=== PATIENT | female | born 1955 | race Caucasian/White ===

== ENCOUNTER → 2020-02-17 | Outpatient (CLI) | payer MEDICARE, OTHER ==
[~2020-02-17] MED LIST: AMITRIPTYLINE H10 MG PO; AUBAGIO14 MG PO; BACLOFEN10 MG PO; IOPAMIDOL 370 MG/ML 200 ML INFUS..BTL INJ ONE; LEVOTHYROXINE50 MCG PO; PAMELOR10 MG PO; PROAIR HFA INH8.5 GM INH; PROTONIX20 MG PO; SODIUM CHLORIDE 0.9% 50ML 50 ML ONE; SYMBICORT 16010.2 GM INH
[2020-02-17 14:27] LABS: BLOOD UREA NITROGEN 12 mg/dL (7-26); BUN/CREATININE RATIO 17 (6-25); CREATININE, SERUM 0.71 mg/dL (0.57-1.11); EST GLOMERULAR FILTRATION RATE > 60 ML/MIN (60-)
--- NOTE | 2020-02-18 09:28 | Diagnostic Imaging Report ---
CT of the abdomen and pelvis with contrast TECHNIQUE: CT of the abdomen and pelvis WITHOUT and WITH intravenous contrast and WITHOUT oral contrast. Dose modulation, iterative reconstruction, and/or weight-based adjustment of the mA/kV was utilized to reduce the radiation dose to as low as reasonably achievable. Renal protocol was utilized including noncontrast imaging, arterial phase imaging, venous phase imaging and delayed imaging. Delayed imaging was extended to include the pelvis. IV CONTRAST: 100 mL of Isovue 370 ORAL CONTRAST: Water RADIATION DOSE: Total DLP: 1969 mGy*cm COMPLICATIONS: None INDICATION: ^[id number] ^[id number] ^CYST OF KIDNEY. COMPARISON: None. FINDINGS: LOWER THORAX: Unremarkable. HEPATOBILIARY: Gallbladder is surgically absent. The entire liver is visualized on noncontrast and delayed phase imaging without suspicious mass or biliary dilatation. Visualized portions of arterial and venous phase imaging are unremarkable. Portal vein is patent. SPLEEN: Mild splenomegaly. PANCREAS: No focal masses or ductal dilatation. ADRENALS: No adrenal nodules. KIDNEYS/URETERS: Negative for renal calculus or hydronephrosis. Negative for perinephric stranding or fluid collection. There is a large right multilobular parapelvic cyst extending superiorly to the level of the gallbladder fossa. No suspicious enhancement is identified on any phase of imaging. No wall thickening or calcification is identified. Exact measurement is difficult however it measures approximately 10.8 cm in the caudal length. It measures up to 8.2 cm in transverse diameter and 5.6 cm in AP diameter. Left inferior pole cortical cyst is identified measuring up to 3.7 cm without suspicious features. Delayed phase imaging demonstrates symmetric excretion of contrast into bilateral nondilated ureters. Negative for intraluminal filling defect. Ureters are well-visualized the level of the bladder without dilatation. PELVIC ORGANS: Urinary bladder is partially distended and unremarkable. No surrounding inflammatory changes or wall thickening. Uterus and ovaries are surgically absent. PERITONEUM/RETROPERITONEUM: No free air or fluid. LYMPH NODES: No lymphadenopathy. VESSELS: Celiac and superior mesenteric arteries are patent and unremarkable. Single right, dominant left and accessory inferior left renal arteries are noted. Negative for abdominal aortic aneurysm. Nonspecific right lower quadrant mesenteric venous varices are noted. GI TRACT: Limited due to lack of oral contrast. Stomach and majority of the colon is decompressed limiting evaluation. No surrounding inflammatory changes are identified. BONES AND SOFT TISSUES: No acute osseous abnormality. No suspicious destructive lesion is identified mild to moderate multilevel degenerative changes of the spine are noted. Moderate degenerative changes of the hip joints are noted. Soft tissues are unremarkable. IMPRESSION: 1. Large lobulated right peripelvic cysts without suspicious features including enhancement, nodularity or calcifications. Small left inferior pole exophytic cortical cyst. Negative for renal calculus or suspicious mass. Negative for hydronephrosis. 2. Nonspecific mesenteric venous varices in the right lower quadrant. 3. Mild splenomegaly. Signed by: Reggie Alatorre MD on 02/18/2020 9:25 AM
== END ==
LOC: CT 13:36
PROVIDERS: ATTEND Urology
DX: N28.1 Cyst of kidney, acquired (principal)
CPT/HCPCS: 36415; 74178; 82565; 84520; Q9967

== ENCOUNTER → 2020-03-16 | Outpatient (CLI) | payer MEDICARE, OTHER ==
[~2020-03-16] MED LIST changes: +FENTANYL CITRATE/PF 100MCG/2 ML INJ ONE; +IOPAMIDOL 300MG/ML 100 ML INFUS..BTL IV ONE; -IOPAMIDOL 370 MG/ML 200 ML INFUS..BTL INJ ONE; +LIDOCAINE HCL 1% LOCAL INJ 20 ML VIAL ONE; +MIDAZOLAM HCL 2 MG/2 ML VIAL ONE; +ONDANSETRON HCL INJ 2MG/ML 2ML 2 MG/ML VIAL ONE; +SODIUM CHLORIDE 0.9% 250ML 250 ML ONE; -SODIUM CHLORIDE 0.9% 50ML 50 ML ONE
[2020-03-16 09:29] LABS: HEMOGLOBIN 13.5 g/dL (12.0-16.0)
[2020-03-16 09:48] LABS: INR 0.93; PROTHROMBIN TIME 12.9 seconds (11.9-14.5)
[2020-03-16 09:49] LABS: PARTIAL THROMBOPLASTIN TIME 37.7 seconds (23.8-35.5)
== END ==
LOC: US 07:43
PROVIDERS: ATTEND Urology
DX: Z01.812 Encounter for preprocedural laboratory examination (principal); Z20.828 Contact with and (suspected) exposure to other viral communicable diseases; N28.1 Cyst of kidney, acquired
CPT/HCPCS: 36415; 49406; 76942; 85014; 85049; 85610; 85730; J2001; J2250; J2405; J3010; J7050; Q9967; U0002

== ENCOUNTER → 2020-05-19 | Outpatient (CLI) | payer MEDICARE, OTHER ==
[~2020-05-19] MED LIST changes: -FENTANYL CITRATE/PF 100MCG/2 ML INJ ONE; -IOPAMIDOL 300MG/ML 100 ML INFUS..BTL IV ONE; -LIDOCAINE HCL 1% LOCAL INJ 20 ML VIAL ONE; -MIDAZOLAM HCL 2 MG/2 ML VIAL ONE; -ONDANSETRON HCL INJ 2MG/ML 2ML 2 MG/ML VIAL ONE; -SODIUM CHLORIDE 0.9% 250ML 250 ML ONE
== END ==
LOC: US 08:22
PROVIDERS: ATTEND Urology
DX: N28.1 Cyst of kidney, acquired (principal)
CPT/HCPCS: 76770

== ENCOUNTER → 2020-09-30 | Outpatient (CLI) | payer MEDICARE, OTHER | LOC: US 12:29 | PROVIDERS: ATTEND Urology | DX: N28.1 Cyst of kidney, acquired (principal) | CPT/HCPCS: 76770 ==

== ENCOUNTER → 2021-02-04 | Day surgery (SDC) | payer MEDICARE, OTHER ==
[2021-02-02 09:54] LABS: BASOPHILS # (AUTO) 0.1 (0.0-0.1); BASOPHILS % 1.4 % (0.0-1.0); EOSINOPHILS # (AUTO) 0.2 (0.0-0.4); EOSINOPHILS % 4.5 % (0.0-6.0); HEMATOCRIT 36.2 % (34.2-44.1); LYMPHOCYTES # (AUTO) 1.5 (1.0-3.2); MEAN CORPUSCULAR HEMOGLOBIN 29.5 pg (28-32); MEAN CORPUSCULAR HGB CONC 33.1 g/dL (31-35); MEAN CORPUSCULAR VOLUME 88.9 fL (81-99); MONOCYTES # (AUTO) 0.6 (0.2-0.8); MONOCYTES % 12.4 % (4.4-11.3); NEUTROPHILS # (AUTO) 2.2 (2.1-6.9); NEUTROPHILS % 48.5 % (38.7-80.0); PLATELET COUNT 156 x10e3/uL (140-360); RED BLOOD COUNT 4.07 x10e6/uL (3.6-5.1); RED CELL DISTRIBUTION WIDTH 12.4 % (11.7-14.4)
[~2021-02-04] MED LIST changes: +CRESTOR10 MG PO; +FENTANYL CITRATE/PF 100MCG/2 ML INJ ONE; +FLOMAX0.4 MG PO; +HYOSCYAMINE SULFATE 0.5 MG/ML INJ ONE; +LOSARTAN POTASS25 MG PO; +METFORMIN HCL500 MG PO; +MIDAZOLAM HCL 2 MG/2 ML VIAL ONE; +OXCARBAZEPINE150 MG PO; +PROPOFOL IV EMULSION 10 MG/ML 20 ML VIAL ONE; +SIMETHICONE 40 MG/0.6 ML BTL ONE; +VESICARE5 MG PO
[2021-02-04 12:20] LABS: WBC,FECAL (FECAL LACTOFERRIN) NEGATIVE (NEGATIVE)
[2021-02-04 12:55] VITALS: BP 122/71
[2021-02-05 15:02] LABS: C DIFFICILE TOXIN A&B AMP PROB NEGATIVE (NEGATIVE)
== END | disposition home or self-care (01) ==
LOC: OR 08:58
PROVIDERS: ATTEND Internal Medicine Gastroenterology
DX: R19.4 Change in bowel habit (principal); D12.3 Benign neoplasm of transverse colon; K63.89 Other specified diseases of intestine; K57.30 Diverticulosis of large intestine without perforation or abscess without bleeding; K64.8 Other hemorrhoids; G47.33 Obstructive sleep apnea (adult) (pediatric); E11.9 Type 2 diabetes mellitus without complications; K21.9 Gastro-esophageal reflux disease without esophagitis; K75.9 Inflammatory liver disease, unspecified; G35 Multiple sclerosis; J45.909 Unspecified asthma, uncomplicated; I10 Essential (primary) hypertension; E78.5 Hyperlipidemia, unspecified; Z88.6 Allergy status to analgesic agent; Z88.1 Allergy status to other antibiotic agents; Z88.0 Allergy status to penicillin; Z01.810 Encounter for preprocedural cardiovascular examination; Z01.812 Encounter for preprocedural laboratory examination; Z20.822 Contact with and (suspected) exposure to COVID-19; Z79.84 Long term (current) use of oral hypoglycemic drugs; Z79.899 Other long term (current) drug therapy
CPT/HCPCS: 36415 ×2; 45380; 45384; 45385; 82948; 83630; 83993; 85025; 87045; 87177; 87328; 87493; 88305; 93005; J1980; J2250; J2704; J3010; U0002; 45378

== ENCOUNTER → 2021-05-06 | Outpatient (CLI) | payer MEDICARE, OTHER ==
[~2021-05-06] MED LIST changes: -FENTANYL CITRATE/PF 100MCG/2 ML INJ ONE; -HYOSCYAMINE SULFATE 0.5 MG/ML INJ ONE; -MIDAZOLAM HCL 2 MG/2 ML VIAL ONE; -PROPOFOL IV EMULSION 10 MG/ML 20 ML VIAL ONE; -SIMETHICONE 40 MG/0.6 ML BTL ONE
== END ==
LOC: US 13:18
PROVIDERS: ATTEND Urology
DX: N28.1 Cyst of kidney, acquired (principal)
CPT/HCPCS: 76770

== ENCOUNTER → 2021-10-15 | Outpatient (CLI) | payer MEDICARE, OTHER | LOC: US 09:36 | PROVIDERS: ATTEND Urology | DX: N28.1 Cyst of kidney, acquired (principal) | CPT/HCPCS: 76770 ==

== ENCOUNTER → 2024-01-10 | Outpatient (REF) | payer MEDICARE, OTHER ==
[~2024-01-10] MED LIST changes: +AMPYRA10 MG PO; +OXYBUTYNIN CHLOR5 MG PO
== END ==
LOC: US 09:39
PROVIDERS: ATTEND Urology
DX: N28.1 Cyst of kidney, acquired (principal)
CPT/HCPCS: 74018; 76770; 76857

== ENCOUNTER → 2024-10-04 | Day surgery (SDC) | payer MEDICARE, OTHER ==
[2024-09-30 10:18] LABS: BASOPHILS % 1.3 % (0.0-1.0); EOSINOPHILS % 3.5 % (0.0-6.0); LYMPHOCYTES % 26.7 % (18.0-39.1); MONOCYTES % 14.2 % (4.4-11.3); NEUTROPHILS % 53.9 % (38.7-80.0); RED CELL DISTRIBUTION WIDTH 12.8 % (11.7-14.4)
[~2024-10-04] MED LIST changes: +B-121000 MC2; +COLLAGEN 15001 EACH; +D3-5000125 MCG; +DEXAMETHASONE SOD PHOS INJ 4 MG/ML SDV ONE; +GLYCOPYRROLATE INJ 0.2 MG/ML VIAL ONE; +LIDOCAINE HCL 2% LOCAL INJ 5 ML SDV VIAL INJ ONE; +METHOCARBAMOL750 MG PO; +ONDANSETRON HCL INJ 2MG/ML 2ML 2 MG/ML VIAL ONE; +PROPOFOL IV EMULSION 10 MG/ML 20 ML VIAL ONE; +TRELEGY ELLIPT1 EAC1
[2024-10-04] MEDS: LACTATED RINGER'S 1,000 ML ONE (05:59)
[2024-10-04 07:36] VITALS: TEMP 97.8
[2024-10-04 08:05] VITALS: BP 169/83; PULSE 84; RESP 16; O2SAT 100
== END | disposition home or self-care (01) ==
LOC: ENDO 05:18
PROVIDERS: ATTEND Internal Medicine Gastroenterology
DX: K22.2 Esophageal obstruction (principal); K21.00 Gastro-esophageal reflux disease with esophagitis, without bleeding; K31.7 Polyp of stomach and duodenum; K29.50 Unspecified chronic gastritis without bleeding; I10 Essential (primary) hypertension; E78.5 Hyperlipidemia, unspecified; G47.33 Obstructive sleep apnea (adult) (pediatric); G35 Multiple sclerosis; M06.9 Rheumatoid arthritis, unspecified; J45.40 Moderate persistent asthma, uncomplicated; K75.9 Inflammatory liver disease, unspecified; E89.0 Postprocedural hypothyroidism; Z85.850 Personal history of malignant neoplasm of thyroid; M19.91 Primary osteoarthritis, unspecified site; I44.0 Atrioventricular block, first degree; I49.3 Ventricular premature depolarization; I25.2 Old myocardial infarction; I45.10 Unspecified right bundle-branch block; Z01.810 Encounter for preprocedural cardiovascular examination; Z01.812 Encounter for preprocedural laboratory examination; Z79.899 Other long term (current) drug therapy
CPT/HCPCS: 36415 ×2; 43239; 43251; 43450; 82948; 85025; 88305; 93005; J1100; J2003; J2405; J2470; J2704; J7121

== ENCOUNTER 2025-01-16 09:47 | Observation (INO) | payer MEDICARE, OTHER ==
[~2025-01-16] VITALS: Ht 165.1 cm; Wt 113.4 kg
[2025-01-16] VITALS (9 sets, daily range): BP systolic 145–178; BP diastolic 75–104; PULSE 75–103; RESP 17–20; TEMP 98.2–98.7; O2SAT 97–100
[~2025-01-16 09:47] MED LIST changes: -IOPAMIDOL 370 MG/ML 100 ML INFUS..BTL INJ ONE
[2025-01-16 11:02] LABS: BASOPHILS % 0.9 % (0.0-1.0); EOSINOPHILS % 1.9 % (0.0-6.0); LYMPHOCYTES % 17.2 % (18.0-39.1); MONOCYTES % 12.5 % (4.4-11.3); NEUTROPHILS % 66.2 % (38.7-80.0); RED CELL DISTRIBUTION WIDTH 11.7 % (11.7-14.4)
[2025-01-16 11:09] LABS: INR 1.03
[2025-01-16 11:15] LABS: EST GLOMERULAR FILTRATION RATE 94.0 ML/MIN (>=60)
[2025-01-16] MEDS: ASPIRIN 81 MG CHEW TAB PO STA (11:49)
[2025-01-16] MEDS: NITROGLYCERIN 2% OINT 1 GM PKT TOP ONE (12:04)
[2025-01-16] MEDS ORDERED: ALBUTEROL 90 MCG/ACT INHALER INH SCH (15:45)
[2025-01-16] MEDS: HYDRALAZINE HCL 20 MG/ML VIAL IV PRN (16:02)
[2025-01-16 17:12] LABS: LEUKOCYTE ESTERASE ,URINE NEGATIVE (NEGATIVE); PROTEIN,URINE DIPSTICK 1+ (NEGATIVE); URINE UROBILINOGEN 0.2 mg/dL (0.2 - 1)
[2025-01-16 17:13] LABS: WBC,URINE (MAN) 0-5 /HPF (0-5)
[2025-01-16 17:14] LABS: EPITHELIAL CELLS,URINE FEW /LPF
[2025-01-16 17:27] LABS: CREATININE,URINE RANDOM 28.50 mg/dL (47-110)
[2025-01-16] MEDS: ONDANSETRON HCL INJ 2MG/ML 2ML 2 MG/ML VIAL IV PRN (18:04)
[2025-01-16] MEDS: SODIUM CHLORIDE 0.9% 1000ML 1,000 ML IV SCH (18:04)
[2025-01-16] MEDS: SODIUM CHLORIDE 1 GM TAB PO SCH (18:08)
[2025-01-16] MEDS: OXYBUTYNIN CHLORIDE 5 MG TAB PO SCH (18:08)
[2025-01-16] MEDS: LOSARTAN POTASSIUM 25 MG TAB PO SCH (18:09)
[2025-01-16] MEDS: PANTOPRAZOLE SOD 40 MG TABEC PO SCH (18:09)
[2025-01-16 20:59] LABS: OSMOLALITY,SERUM 243.0 mOsm/kg (278-305)
[2025-01-16 21:09] LABS: T3 UPTAKE 28.87 % (22.5-37.0)
[2025-01-16] MEDS: TAMSULOSIN HCL 0.4 MG CAP PO SCH (21:40)
[2025-01-16] MEDS: TEMAZEPAM 7.5 MG CAP PO PRN (22:59)
[2025-01-17] VITALS (10 sets, daily range): BP systolic 117–166; BP diastolic 58–90; PULSE 71–92; RESP 17–20; TEMP 98–98.9; O2SAT 95–100
[2025-01-17] MEDS: SODIUM CHLORIDE 1 GM TAB PO SCH (00:44)
[2025-01-17 05:52] LABS: BASOPHILS % 0.3 % (0.0-1.0); EOSINOPHILS % 0.4 % (0.0-6.0); LYMPHOCYTES % 12.9 % (18.0-39.1); MONOCYTES % 11.3 % (4.4-11.3); NEUTROPHILS % 74.4 % (38.7-80.0); RED CELL DISTRIBUTION WIDTH 11.5 % (11.7-14.4)
[2025-01-17 06:23] LABS: EST GLOMERULAR FILTRATION RATE 100.0 ML/MIN (>=60)
[2025-01-17 06:24] LABS: CHOL/HDL RATIO 2.5 (3.0-3.6); LDL CHOLESTEROL 78.0 MG/DL (60-130)
[2025-01-17] MEDS: ASPIRIN 81 MG ENTERIC COATED PO SCH (09:52)
[2025-01-17] MEDS: LEVOTHYROXINE SODIUM 50 MCG TAB PO SCH (09:53)
[2025-01-17] MEDS: IBUPROFEN 200 MG TAB PO STA (09:53)
[2025-01-17] MEDS: POTASSIUM CHLORIDE 20 MEQ TAB CR PO STA (11:53)
[2025-01-17] MEDS ORDERED: IOPAMIDOL 370 MG/ML 100 ML INFUS..BTL INJ ONE (16:30)
[2025-01-17] MEDS ORDERED: IBUPROFEN 400 MG TAB PO PRN (21:00)
[2025-01-18] VITALS (7 sets, daily range): BP systolic 115–144; BP diastolic 62–79; PULSE 80–91; RESP 18–20; TEMP 98.5–98.9; O2SAT 97–100
[2025-01-18 09:00] LABS: EST GLOMERULAR FILTRATION RATE 79.0 ML/MIN (>=60)
[2025-01-19 17:10] LABS: OSMOLALITY,SERUM OSMOMETER 252 mOsmol/kg (280-301)
[2025-01-19 19:12] LABS: OSMOLALITY,URINE 381 mOsmol/kg (.)
== END 2025-01-18 16:12 | disposition home or self-care (01) ==
LOC: ER 09:55 → ERHOLD 12:07 → MED/SURG2 16:31
PROVIDERS: ADMIT Internal Medicine; ATTEND Internal Medicine
DX: R07.9 Chest pain, unspecified (principal); I10 Essential (primary) hypertension; E22.2 Syndrome of inappropriate secretion of antidiuretic hormone; E03.9 Hypothyroidism, unspecified; J45.909 Unspecified asthma, uncomplicated; G47.00 Insomnia, unspecified; H91.90 Unspecified hearing loss, unspecified ear; N28.1 Cyst of kidney, acquired; K21.9 Gastro-esophageal reflux disease without esophagitis; Z85.850 Personal history of malignant neoplasm of thyroid; E87.6 Hypokalemia
CPT/HCPCS: 36415 ×3; 71045; 71260; 80048; 80053 ×2; 80061; 81001; 82024; 82550 ×2; 82570; 82947; 82948 ×3; 83036; 83690; 83735; 83930; 83935; 84295 ×2; 84300; 84436; 84443; 84479; 84484 ×2; 84520; 84550; 85025 ×2; 85379; 85610; 85730; 93005; 93306; 94799 ×3; 99284; G0378 ×3; J0360; J2405; J2470 ×3; J7030; Q9967

== ENCOUNTER → 2025-01-16 | Outpatient (REF) | payer MEDICARE ==
[~2025-01-16] MED LIST changes: -DEXAMETHASONE SOD PHOS INJ 4 MG/ML SDV ONE; -GLYCOPYRROLATE INJ 0.2 MG/ML VIAL ONE; +IOPAMIDOL 370 MG/ML 100 ML INFUS..BTL INJ ONE; -LIDOCAINE HCL 2% LOCAL INJ 5 ML SDV VIAL INJ ONE; -ONDANSETRON HCL INJ 2MG/ML 2ML 2 MG/ML VIAL ONE; -PROPOFOL IV EMULSION 10 MG/ML 20 ML VIAL ONE
== END ==
LOC: US 08:28
PROVIDERS: ATTEND Urology
DX: N28.1 Cyst of kidney, acquired (principal)
CPT/HCPCS: 76770; 76857; Q9967